=== PATIENT | male | born 1960 | race Caucasian/White ===

== ENCOUNTER 2020-10-05 08:55 | Day surgery (SDC) | payer OTHER ==
[~2020-10-05] VITALS: Ht 172.7 cm; Wt 113.4 kg
[2020-10-05] MEDS ORDERED: fentaNYL citrate 0.05 MG/ML VIAL ONE (13:29)
[2020-10-05] MEDS ORDERED: LIDOCAINE 2% 100 MG/5 ML UJET TP ONE ×2 (13:29→14:00)
[2020-10-05] MEDS ORDERED: fentaNYL citrate 0.05 MG/ML VIAL IVP ONE (14:00)
== END 2020-10-05 14:50 | disposition home or self-care (01) ==
LOC: MDS 08:55 → MMU 08:56 → MDS 14:50
PROVIDERS: ATTEND Internal Medicine Gastroenterology
DX: Z12.11 Encounter for screening for malignant neoplasm of colon (principal); Z86.010 Personal history of colon polyps; D12.5 Benign neoplasm of sigmoid colon; K57.30 Diverticulosis of large intestine without perforation or abscess without bleeding; M19.90 Unspecified osteoarthritis, unspecified site; E11.9 Type 2 diabetes mellitus without complications; Z85.038 Personal history of other malignant neoplasm of large intestine; Z68.38 Body mass index [BMI] 38.0-38.9, adult; E66.9 Obesity, unspecified; Z79.84 Long term (current) use of oral hypoglycemic drugs; Z79.899 Other long term (current) drug therapy
CPT/HCPCS: 45385; 88305; J3010

== ENCOUNTER 2023-03-20 09:28 | Day surgery (SDC) | payer OTHER ==
[2023-03-20] MEDS ORDERED: fentaNYL citrate 0.05 MG/ML VIAL ONE (15:04)
[2023-03-20] MEDS: fentaNYL citrate 0.05 MG/ML VIAL IVP ONE (15:07)
[2023-03-20] MEDS: LIDOCAINE 2% 100 MG/5 ML UJET TP ONE (15:17)
== END 2023-03-20 16:10 | disposition home or self-care (01) ==
LOC: MOR 09:28 → MMU 13:12 → MOR 16:10
PROVIDERS: ATTEND Internal Medicine Gastroenterology
DX: Z12.11 Encounter for screening for malignant neoplasm of colon (principal); D12.5 Benign neoplasm of sigmoid colon; Z86.010 Personal history of colon polyps; Z85.038 Personal history of other malignant neoplasm of large intestine; I10 Essential (primary) hypertension; E11.9 Type 2 diabetes mellitus without complications; M06.9 Rheumatoid arthritis, unspecified; K57.30 Diverticulosis of large intestine without perforation or abscess without bleeding; Z79.899 Other long term (current) drug therapy; Z98.0 Intestinal bypass and anastomosis status; Z90.49 Acquired absence of other specified parts of digestive tract
CPT/HCPCS: 45385; 82948; J3010